=== PATIENT | male | born 1990 | race Caucasian/White ===

== ENCOUNTER 2021-08-24 18:20 | Emergency (ER) | payer OTHER, SELFPAY ==
[2021-08-24 18:26] VITALS: BP 139/83; PULSE 67; RESP 20; TEMP 36.4; O2SAT 98
--- NOTE | 2021-08-24 19:11 | W.ED.GENAD ---
Discharge Plan Disposition Patient Disposition: HOME Condition: Stable Discharge Details Clinical Impression: Pain and swelling of left wrist, Left wrist sprain Primary Care Provider: [place],Local ED Provider: Veronika Valdes Discharge Instructions Instructions: Wrist Sprain (ED) Additional Instructions: There is a question of blood supply to a bone in your wrist. Please continue to wear the splint for comfort and take tylenol or ibuprofen. You are placed on a follow-up list for orthopedics, they should call you if you do not hear from them in 2 to 3 days please call the office to make an appointment. No evidence of broken bone. Rest, ice, compression, elevation. Follow up with primary care provider in 3-5 days. Return to ED sooner if any worsening or concerns. Increase oral fluids. Please take Tylenol or Ibuprofen with food every 4-6 hours as needed for pain and swelling. Stand Alone Forms: Work Release Referrals: Joel Sun MD [ [facility] STAFF PHYSICIAN] - 5 days (Possible Keinbock Disease left wrist, Pain and swelling to left radial aspect of distal Forearm) Medical Decision Making Patient is a 30-year-old mostly kyrgyz speaking male who presents with left distal forearm swelling and pain which he noticed today. 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 Today he noticed that it started getting swollen. It does hurt to abduct and abduct thumb and to make a fist. Elbow has full range of motion no obvious deformity noted to the elbow. Does have swelling along the radial aspect of his distal left forearm. X-ray of wrist and forearm ordered. Ibuprofen 800 mg and ice pack. FINDINGS: Bones/joints: No evidence of fracture. Negative for dislocation. Negative for bony erosion or destructive change. Mild sclerosis and irregular trabeculation questioned in the lunate. No collapse observed. No significant joint space narrowing. Soft tissues: Negative for soft tissue air. No foreign bodies observed. IMPRESSION: No evidence of fracture. No significant arthropathy. Possible early avascular necrosis of the lunate/Keinbock disease. Consider MRI for further evaluation. Thank you for allowing us to participate in the care of your patient. Dictated and Authenticated by: Van Anna MD XR Forearm: FINDINGS: Bones/joints: Negative for fracture in the radius or ulna. The elbow is appropriately located. A large unfused ossification center is noted at the medial epicondyle. There is no significant narrowing in the elbow. No evidence of joint effusion at the elbow. Please see wrist dictated separately. Soft tissues: No soft tissue air. No foreign bodies. IMPRESSION: 1. No acute osseous abnormality. If symptoms persist, follow-up imaging is advised. 2. Chronic/childhood injury suspected at the medial epicondyle with an unfused ossification center. Thank you for allowing us to participate in the care of your patient. Dictated and Authenticated by: Van Anna MD Admitting patient given a universal thumb spica wrist splint. Will refer to orthopedics regarding this possibility of avascular necrosis and follow-up for possible MRI. Instructed on rest ice compression elevation and follow-up. Verbalized understanding. This text was generated using GenieDBation system, please disregard any oddities of phrase or misspellings. HPI General Mode of arrival: ambulatory. Date/Time Provider Initiated Documentation: 08/24/21 18:47. Limitations to Documentation: language barrier (Vincentian Speaking). Information obtained by: patient and RN notes reviewed. HPI Narrative: Patient is a 30-year-old male who presents with left distal forearm swelling and pain which he noticed today. 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 Today he noticed that it started getting swollen. It does hurt to abduct and abduct and to make a fist. Elbow has full range of motion no obvious deformity noted to the elbow. Does have swelling along the radial aspect of his distal left forearm. He has not taken any ibuprofen or Tylenol today prior to arrival. We are using the [employer] translation service and patient does have a coworker at bedside with him that know some Citizen [place]. Related Data Allergies Allergy/AdvReac Type Severity Reaction Status Date / Time No Known Allergies Allergy Unverified 08/24/21 18:47 General Stated Complaint: Orthopedic LEIGHA: 4 Review of Systems All systems reviewed & are unremarkable except as noted in HPI and below Musculoskeletal Musculoskeletal: Reports as per HPI, Reports arthralgias and Reports joint swelling (Left distal forearmafter repetative movements) PFSH All Active Problems (Updated 08/24/21 @ 21:11 by Veronika Valdes) Pain and swelling of left wrist (Acute) Left wrist sprain (Acute) Social History Smoking/Tobacco Use Status: Never Smoking risk assessment performed?: Yes Alcohol Intake: current Alcohol Intake frequency: holidays/special occasions only Alcohol type: beer Substance use type: does not use Do you feel safe at home: Yes Do you feel safe in your relationship?: Yes Exam Extrem Left upper extremity: full ROM, normal capillary refill, elbow/forearm Details: tenderness (distal forearm) Location: of the radial head and swelling Location: of the radial head and wrist Course Vital Signs Vital signs: Vital Signs Temperature 36.4 C L 08/24/21 18:26 Pulse 67 08/24/21 18:26 Respiratory Rate 20 08/24/21 18:26 Blood Pressure 139/83 08/24/21 18:26 Pulse Oximetry 98 08/24/21 18:26 Temperature 36.4 C L 08/24/21 18:26 Temperature Source Temporal Artery Scan 08/24/21 18:26 Pulse 67 08/24/21 18:26 Respiratory Rate 20 08/24/21 18:26 Respiratory Effort 08/24/21 18:30 Blood Pressure 139/83 08/24/21 18:26 Blood Pressure Position Sitting 08/24/21 18:26 Pulse Oximetry 98 08/24/21 18:26 Oxygen Delivery Method Room Air 08/24/21 18:26 Oxygen Flow Rate 0 08/24/21 18:26 Pain Level 7 08/24/21 18:26
--- NOTE | 2021-08-24 19:15 | DI.RAD_ITS ---
Exam(s) XR FOREARM LT XR WRIST LT COMPLETE EXAM: XR WRIST LT COMPLETE and XR forearm LT CLINICAL HISTORY: Swelling, Pain. TECHNIQUE: 2D digital imaging was performed of the left wrist. Five images were obtained. PA, obli que and lateral views were obtained. COMPARISON: CR,XR XR FOREARM LT from 08/24/2021 FINDINGS: BONES: No acute fracture is present. No bony destructive lesion is seen. Old well-circumscribed osseo us densities adjacent to the medial epicondyle which may reflect old nonunited fracture fragments. JOINTS: The carpal bones are normally aligned. SOFT TISSUE: Normal. IMPRESSION: No acute fracture or dislocation involving the left wrist or forearm. DATA REPOSITORY: RADIATION DOSE DELIVERED:
[2021-08-24] MEDS: Ibuprofen 800 MG TAB PO (19:25)
--- NOTE | 2021-08-24 20:59 | DI.VRAD_ITS ---
PROCEDURE INFORMATION: Exam: XR Left Wrist Exam date and time: 08/24/2021 7:16 PM Age: 30 years old Clinical indication: Pain; Wrist; Left TECHNIQUE: Imaging protocol: XR Left wrist. Views: 3 or more views. COMPARISON: No relevant prior studies available. FINDINGS: Bones/joints: No evidence of fracture. Negative for dislocation. Negative for bony erosion or destructive change. Mild sclerosis and irregular trabeculation questioned in the lunate. No collapse observed. No significant joint space narrowing. Soft tissues: Negative for soft tissue air. No foreign bodies observed. IMPRESSION: No evidence of fracture. No significant arthropathy. Possible early avascular necrosis of the lunate/Keinbock disease. Consider MRI for further evaluation. Dictated and Authenticated by: Van Anna MD. Ordering:MARIA ESTHER Banda MD
--- NOTE | 2021-08-24 21:00 | DI.VRAD_ITS ---
PROCEDURE INFORMATION: Exam: XR Left Forearm Exam date and time: 08/24/2021 7:16 PM Age: 30 years old Clinical indication: Pain; Lower or forearm; Left TECHNIQUE: Imaging protocol: XR Left forearm. Views: 2 views. COMPARISON: CR XR WRIST LT COMPLETE 08/24/2021 8:14 PM FINDINGS: Bones/joints: Negative for fracture in the radius or ulna. The elbow is appropriately located. A large unfused ossification center is noted at the medial epicondyle. There is no significant narrowing in the elbow. No evidence of joint effusion at the elbow. Please see wrist dictated separately. Soft tissues: No soft tissue air. No foreign bodies. IMPRESSION: 1. No acute osseous abnormality. If symptoms persist, follow-up imaging is advised. 2. Chronic/childhood injury suspected at the medial epicondyle with an unfused ossification center. Dictated and Authenticated by: Van Anna MD. Ordering:MARIA ESTHER Banda MD
== END 2021-08-24 21:25 | disposition home or self-care (01) ==
PROVIDERS: Emergency Provider Registered Nurse Emergency
DX: S63.592A Other specified sprain of left wrist, initial encounter (principal); X50.1XXA Overexertion from prolonged static or awkward postures, initial encounter; Y99.0 Civilian activity done for income or pay; M79.89 Other specified soft tissue disorders
CPT/HCPCS: 29125; 99284; 73090; 73110; 99283